=== PATIENT | female | born 2005 | race Caucasian/White ===

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

== ENCOUNTER 2025-04-27 10:39 | Emergency (ER) | payer BC, SELFPAY ==
[2025-04-27 10:43] VITALS: BP 113/67; PULSE 71; RESP 14; TEMP 36.4; O2SAT 100
--- NOTE | 2025-04-27 10:49 | W.ED.GENAD ---
Discharge Plan Disposition Patient Disposition: Home Condition: Good Discharge Details Clinical Impression: Dog bite of left thumb Primary Care Provider: Unknown,Unknown ED Provider: Mckinley Ortiz Home Meds and New Rx's Prescriptions: New amoxicillin-pot clavulanate 875-125 mg tablet 1 tab PO BID Qty: 14 0RF acetaminophen [Tylenol] 325 mg tablet 650 mg PO ONCE PRNQty: 20 0RF ibuprofen 600 mg tablet 600 mg PO Q6H PRNQty: 30 0RF Continued norgestimate-ethinyl estradiol [Estarylla] 0.25-35 mg-mcg tablet 1 tab PO DAILY Qty: 84 3RF Discharge Instructions Instructions: Animal Bites ED Additional Instructions: Please follow-up with your primary care provider regarding your visit to the emergency department today. Be sure to discuss results of all test performed here today to include radiology, and laboratory testing as well as results for any pending cultures. Should your symptoms worsen, or if you develop new concerning symptoms, such as purulent discharge from the wound, fever, spreading rash or worsening pain please return immediately emergency department for further evaluation. HPI General Date/Time Provider Initiated Documentation: 04/27/25 10:43. HPI Narrative: The patient is a 20-year-old female presenting with a canine bite injury to the left thumb. The dog, which is her pet, is vaccinated against rabies. The incident occurred earlier today while she was assisting the dog post-surgery. The pain is localized to the left thumb and is described as numb due to the application of ice. The pain intensity is rated at 4/10 and is exacerbated by movement. The patient administered 800 mg of ibuprofen following an episode of emesis attributed to the pain. She reports no known drug allergies or pre-existing medical conditions. Her last tetanus immunization was administered within the past five years. Related Data Home Medications ?Medication ?Instructions ?Recorded ?Confirmed norgestimate 0.25 mg-ethinyl 1 tab PO DAILY #84 tabs 08/10/24 04/27/25 estradiol 0.035 mg tablet (Estarylla) acetaminophen 325 mg tablet 650 mg (2 x 325 mg) PO ONCE PRN 04/27/25 (Tylenol) #20 tabs amoxicillin 875 mg-potassium 1 tab PO BID #14 tabs 04/27/25 clavulanate 125 mg tablet ibuprofen 600 mg tablet 600 mg PO Q6H PRN #30 tabs 04/27/25 Previous Rx's ?Medication ?Instructions ?Recorded norgestimate 0.25 mg-ethinyl 1 tab PO DAILY #84 tabs 08/10/24 estradiol 0.035 mg tablet (Estarylla) acetaminophen 325 mg tablet 650 mg (2 x 325 mg) PO ONCE PRN 04/27/25 (Tylenol) #20 tabs amoxicillin 875 mg-potassium 1 tab PO BID #14 tabs 04/27/25 clavulanate 125 mg tablet ibuprofen 600 mg tablet 600 mg PO Q6H PRN #30 tabs 04/27/25 Allergies Allergy/AdvReac Type Severity Reaction Status Date / Time No Known Allergies Allergy Verified 04/27/25 11:52 General Stated Complaint: AnimalBite LINA: 4 Review of Systems All systems reviewed & are unremarkable except as noted in HPI and below Exam Narrative Exam Narrative: Vital signs: Reviewed. General Appearance: Alert and oriented. No acute distress. HEENT: NCAT, EOMI, not icteric. External ears normal. No rhinorrhea. Moist mucous membranes. Neck: Supple, full range of motion, no observable masses, No meningeal sign. Respiratory: No Respiratory distress. No tachypnea. Cardiovascular: RRR, no edema. Gastrointestinal: Soft, nondistended, No rebound tenderness. Back: No midline tenderness to palpation or palpable step-offs of the C/T/L spine. Musculoskeletal: Opposition, flexion, and extension of the left thumb intact. Skin: Puncture rosanna at base of left thumb over dorsal aspect, no active bleeding. Neurological: Neurovascular status intact distal to injury. Psychiatric: Appropriate for situation. Course Vital Signs Vital signs: Vital Signs Temperature 36.4 C L 04/27/25 10:43 Pulse 71 04/27/25 10:43 Respiratory Rate 14 04/27/25 10:43 Blood Pressure 113/67 04/27/25 10:43 Pulse Oximetry 100 04/27/25 10:43 Temperature 36.4 C L 04/27/25 10:43 Temperature Source Oral 04/27/25 10:43 Pulse 71 04/27/25 10:43 Respiratory Rate 14 04/27/25 10:43 Blood Pressure 113/67 04/27/25 10:43 Blood Pressure Position Sitting 04/27/25 10:43 Pulse Oximetry 100 04/27/25 10:43 Oxygen Delivery Method Room Air 04/27/25 10:43 Oxygen Flow Rate 0 04/27/25 10:43 Medical Decision Making Medical Records Medical records narrative: 20-year-old female with dog bite to left thumb. Dog vaccinated for rabies. X-ray obtained to rule out fracture or foreign body. Wound cleaned. First dose of Augmentin and Tylenol administered. Discharge home. Return if pain or nausea worsens. Take Augmentin with meals to minimize gastrointestinal discomfort. This document was created with assistance from [employer]. The patient consented to its use. Imaging Data Radiologic Study: Radiologist's impression: Exam(s) XR HAND LT COMPLETE EXAM: XR HAND LT COMPLETE CLINICAL HISTORY: Dog bit to the thumb. TECHNIQUE: 2D digital imaging was performed. COMPARISON: No exams were available for comparison FINDINGS: 3 views No evidence of acute fracture or dislocation nor abnormal soft tissue densities. No radiopaque foreign bodies. No osseous lesions nor erosions. No degenerative changes. Bone density normal. No osseous lesions. IMPRESSION: No significant osseous findings in the left hand. PFSH All Active Problems (Updated 04/27/25 @ 11:53 by Mckinley Ortiz MD) Dog bite of left thumb (Acute) Annual physical exam (Acute) Contraceptive surveillance (Acute) Family History Mother Endometriosis Social History (Updated 04/14/19 @ 15:20 by Tamera Pearce NP) Smoking/Tobacco Use Status: Never Smoking risk assessment performed?: Yes Alcohol Intake: never Drug use: Never Substance use type: does not use current occupation: student Do you feel safe at home: Yes Do you feel safe in your relationship?: Yes Female Reproductive History Menstrual control method: pills History History 0 Para Hx # Term Pregnancies Multiple births Hx # Pregnancies Ectopic pregnancies AB induced Hx Number of Living Children AB spontaneous
[2025-04-27] MEDS: Amoxicillin 875/Clav. 125 TAB PO (11:19)
[2025-04-27] MEDS: Ondansetron 0.8 MG/ML Solution 4 MG PO (11:20)
[2025-04-27] MEDS: Acetaminophen 500 MG TAB 1000 MG PO (11:20)
--- NOTE | 2025-04-27 11:35 | DI.RAD_ITS ---
Exam(s) XR HAND LT COMPLETE EXAM: XR HAND LT COMPLETE CLINICAL HISTORY: Dog bit to the thumb. TECHNIQUE: 2D digital imaging was performed. COMPARISON: No exams were available for comparison FINDINGS: 3 views No evidence of acute fracture or dislocation nor abnormal soft tissue densities. No radiopaque foreign bodies. No osseous lesions nor erosions. No degenerative changes. Bone density normal. No osseous lesions. IMPRESSION: No significant osseous findings in the left hand. DATA REPOSITORY: RADIATION DOSE DELIVERED:
--- NOTE | 2025-04-27 11:52 | NUR.NOTE ---
Faxed Dog Bite for to [facility] Health Officer, Michael Zuñiga. Fax #: [phone]
[2025-04-27 12:16] VITALS: BP 100/60; PULSE 90; RESP 16; TEMP 36.7; O2SAT 100
== END 2025-04-27 12:17 | disposition home or self-care (01) ==
LOC: ER 12:09
PROVIDERS: Emergency Provider General Practice
DX: S60.372A Other superficial bite of left thumb, initial encounter (principal); W54.0XXA Bitten by dog, initial encounter
CPT/HCPCS: 99283 ×2; 73130; J8597

== ENCOUNTER 2025-07-20 15:47 | Outpatient (REF) | payer BC, SELFPAY ==
--- NOTE | 2025-07-20 15:30 | PAPFT_PTH ---
PATIENT: Estela Barnard LOC: [facility] U#:[id number] AGE/SX: 20/F ROOM: RE07/20/[address]: Lucía Holley NP : 2005 BED: DIS: 07/20/2025 SPEC #: [id number] RECD: 07/20/25 18:07 STATUS: SUSIE NARANJO #: [id number] MICHEAL: 07/20/25 15:[address]: Lucía Holley NP DEPT: [facility] Cytology RECD BY: Marlen Dubon ENTERED: 07/20/25 18:07 SP TYPE: PAPFT RACQUEL DR: Unknown,Unknown Tissues: 1 - CX/ENDOCX FOR PAP SMEARS Procedures: PAP THIN PREP/[facility] Screening Comments: [id number]
== END 2025-07-20 15:48 | disposition home or self-care (01) ==
LOC: LBN 15:47
PROVIDERS: Visit Provider Nurse Practitioner Women's Health
DX: Z12.4 Encounter for screening for malignant neoplasm of cervix (principal)
CPT/HCPCS: 88142